=== PATIENT | female | born 1985 | race Hispanic/Latino ===

== ENCOUNTER 2018-08-21 16:47 | Emergency (ER) | payer OTHER, SELFPAY ==
[2018-08-21 16:54] VITALS: BP 113/64; PULSE 78; RESP 18; TEMP 37.4; O2SAT 98
--- NOTE | 2018-08-21 17:14 | DI.RAD.S_ITS ---
PROCEDURE: XR CHEST 1V INDICATIONS: chest pain TECHNIQUE: One view of the chest was acquired. COMPARISON: None. FINDINGS: Surgical changes and devices: None. Lungs and pleura: No pleural effusions or pneumothorax. Lungs are clear. Mediastinum: Mediastinal contours appear normal. Heart size is normal. Bones and chest wall: No suspicious bony lesions. Overlying soft tissues appear unremarkable. IMPRESSION: No acute cardiopulmonary radiology. Dictated by: Michael Le M.D. on 08/21/2018 at 17:32 Approved by: Michael Le M.D. on 08/21/2018 at 17:32
--- NOTE | 2018-08-21 17:20 | ED_ITS ---
HPI - Chest Pain General Chief Complaint: Chest Pain Stated Complaint: chest pains Time Seen by Provider: 08/21/18 17:08 Source: patient Mode of arrival: ambulatory Limitations: no limitations History of Present Illness HPI narrative: Patient is a 32-year-old female who presents with shortness of breath and chest discomfort. She says she has been extremely fatigued for the last 3 days. No fever or chills. She has no productive cough. She says that when she walks she feels like her chest gets tight. She does have history of asthma a child she says this feels similar. She denies any wheezing. MD complaint: chest pain Onset: during exertion Pain location: right chest Related Data Previous Rx's Medication Instructions Recorded progesterone micronized 100 mg PO QDAY #30 cap 08/04/16 Allergies Allergy/AdvReac Type Severity Reaction Status Date / Time No Known Drug Allergies Allergy Verified 08/21/18 16:53 Review of Systems Review of Systems Constitutional Denies body ache(s), Denies chills, Reports fatigue, Denies fever(s) and Denies weakness Cardiovascular Reports as per HPI, Reports chest pain, Denies dyspnea and Reports dyspnea on exertion Respiratory Denies cough, Denies dyspnea, Reports dyspnea on exertion and Denies wheezing Gastrointestinal Gastrointestinal: Denies abdominal pain, Denies change in bowel habits, Denies diarrhea, Denies nausea and Denies vomiting Musculoskeletal Denies back pain, Denies muscle weakness, Denies numbness and Denies tingling Integumentary/Breasts Denies pruritus, Denies erythema, Denies rash and Denies wounds Neurologic Denies numbness, Denies tingling and Denies weakness Endocrine Reports fatigue Allergic/Immunologic Denies wheezing [facility] Medical History Asthma (Resolved) Surgical History History of third molar tooth extraction Exam Initial Vital Signs Initial Vital Signs: Vital Signs Temperature 99.3 F 08/21/18 16:54 Pulse Rate 78 08/21/18 16:54 Respiratory Rate 18 08/21/18 16:54 Blood Pressure 113/64 08/21/18 16:54 Pulse Oximetry 98 08/21/18 16:54 GENERAL: Well-appearing, well-nourished and in no acute distress. HEENT: Head atraumatic,EOMI, pupils reactive, CARDIOVASCULAR: Regular rate and rhythm without murmurs, rubs or gallops. RESPIRATORY: Breath sounds equal bilaterally, no wheezes rales or rhonchi. ABDOMEN: Soft, nontender. Normoactive bowel sounds all 4 quadrants. No guarding or rebound. EXTREMITIES: Normal range of motion, no clubbing or edema. Neurovascularly intact NEUROLOGICAL: Alert and oriented x4.Normal gait and speech. Cranial nerves II through XII grossly intact. SKIN: Warm, dry, no laceration, no petechiae, no rashes or lesions. Course Orders Ordered: Discontinued Medications Albuterol (Ventolin) 2.5 mg INH NOW ONE Stop: 08/21/18 17:14 Last Admin: 08/21/18 17:33 Dose: 2.5 mg Albuterol (Ventolin Hfa Prepack) 1 box MISC SEEINSTR ONE Stop: 08/21/18 18:03 Last Admin: 08/21/18 18:09 Dose: 1 box Sodium Chloride (Normal Saline 0.9%) 1,000 mls @ 1,000 mls/hr IV CONT MATT Last Admin: 08/21/18 17:32 Dose: 1,000 mls/hr Vital Signs - 8 hr 08/21/18 16:54 Temperature 99.3 F Pulse Rate 78 Respiratory Rate 18 Blood Pressure [Left Arm] 113/64 Pulse Oximetry 98 MDM - Chest Pain Lab Data Attestation: I reviewed the patient's lab results. Result diagrams: 08/21/18 16:55 08/21/18 16:55 Lab Results 08/21/18 08/21/18 Range/Units 16:55 16:55 WBC 7.1 (4.5-11.0) X10^3/uL RBC 5.01 (4.0-5.2) X10^6/uL Hgb 12.7 (12.0-16.0) g/dL Hct 39.3 (36-46) % MCV 78.4 L (80-100) fL MCH 25.4 L (26-34) PG MCHC 32.4 (30-36) % RDW 14.4 (11.6-14.8) % Plt Count 262 (150-400) X10^3/uL Neut % (Auto) 63.3 (50-75) % Lymph % (Auto) 23.5 L (25-40) % Atlantic % (Auto) 7.3 (3-14) % Eos % (Auto) 5.5 H (2-4) % Baso % (Auto) 0.4 (0-2) % Neut # (Auto) 4500 (4343-8257) /uL Sodium 144 (137-145) mmol/L Potassium 3.5 (3.4-5.1) mmol/L Chloride 106 (98-107) mmol/L Carbon Dioxide 25 (22-32) mmol/L BUN 16 (7-17) mg/dL Creatinine 0.80 (0.52-1.04) mg/dL Estimated GFR > 60.0 (>60) mL/min BUN/Creatinine Ratio 20.0 (6-22) Glucose 105 H (70-100) mg/dL Calcium 9.1 (8.4-10.2) mg/dL Total Bilirubin 0.3 (0.2-1.3) mg/dL AST 26 (14-36) IU/L ALT 22 (9-52) IU/L Alkaline Phosphatase 53 (38-126) U/L Total Creatine Kinase 74 (30-135) U/L CK-MB (CK-2) TNP CK-MB (CK-2) Rel Index TNP Troponin I < 0.012 (0.01-0.034) ng/mL Total Protein 7.9 (6.3-8.2) g/dL Albumin 4.4 (3.5-5.0) g/dL Globulin 3.5 (1.7-4.1) g/dL Albumin/Globulin Ratio 1.3 (1.0-2.8) Lipase 127 (23-300) U/L Imaging Data Chest x-ray: Attestation: I personally reviewed and interpreted this imaging study as follows: Radiologist's impression: PROCEDURE: XR CHEST 1V INDICATIONS: chest pain TECHNIQUE: One view of the chest was acquired. COMPARISON: None. FINDINGS: Surgical changes and devices: None. Lungs and pleura: No pleural effusions or pneumothorax. Lungs are clear. Mediastinum: Mediastinal contours appear normal. Heart size is normal. Bones and chest wall: No suspicious bony lesions. Overlying soft tissues appear unremarkable. IMPRESSION: No acute cardiopulmonary radiology. Dictated by: Michael Le M.D. on 08/21/2018 at 17:32 ECG Data Attestation: I personally reviewed and interpreted this ECG as follows: Prior ECG tracings: not available for review Interpretation: Normal sinus rhythm rate [address] changes artifact noted nonspecific T-wave inversions MDM Narrative Medical decision making narrative: Patient is overall feeling better after albuterol. A blood work is an chest x-ray are within normal limits. She is given albuterol inhaler and spacer teaching by respiratory. Discharge Plan Departure Patient Disposition: Home Clinical Impression: Atypical chest pain, Bronchitis Discharge Date/Time: 08/21/18 18:19 Interventions: ED Discharge Assessment Last Done: 08/21/18 18:05 Instructions: DI for Acute Bronchitis Activity Restrictions/Additional Instructions: *You have been diagnosed with bronchitis, atypical chest pain *What to do: At this time no need for antibiotics this is likely viral. Rest *Continue to take medications as directed Albuterol inhaler 1-2 puffs every 4 hr if needed for chest tightness shortness of breath *Follow up with your primary care provider in 2-3 days *Return to ER if you should have increasing shortness of breath, difficulty breathing, chest any new, worsening or concerning symptoms Prescriptions: No Action progesterone micronized 100 MG capsule 100 mg PO QDAY Qty: 30 RF: 2 Referrals: Aura Lopez PA-C [Primary Care Provider] -
[2018-08-21 17:26] LABS: Add Manual Diff / Slide Review NO; Basophils Percent Auto 0.4 % (0-2); Eosinophils Percent Auto 5.5 % (2-4); Hematocrit 39.3 % (36-46); Hemoglobin 12.7 g/dL (12.0-16.0); Lymphocytes Percent Auto 23.5 % (25-40); Mean Corpuscular HGB Conc 32.4 % (30-36); Mean Corpuscular Hemoglobin 25.4 PG (26-34); Mean Corpuscular Volume 78.4 fL (80-100); Monocytes Percent Auto 7.3 % (3-14); Neutrophils Absolute Auto 4500 /uL (1500-7000); Neutrophils Percent Auto 63.3 % (50-75); Platelet Count 262 X10^3/uL (150-400); Red Blood Cell Count 5.01 X10^6/uL (4.0-5.2); Red Cell Distribution Width 14.4 % (11.6-14.8); White Blood Cell Count 7.1 X10^3/uL (4.5-11.0)
[2018-08-21 17:28] LABS: Alanine Aminotransferase 22 IU/L (9-52); Albumin 4.4 g/dL (3.5-5.0); Albumin Globulin Ratio 1.3 (1.0-2.8); Alkaline Phosphatase 53 U/L (38-126); Aspartate Aminotransferase 26 IU/L (14-36); Bilirubin Total 0.3 mg/dL (0.2-1.3); Blood Urea Nitrogen 16 mg/dL (7-17); Calcium 9.1 mg/dL (8.4-10.2); Carbon Dioxide 25 mmol/L (22-32); Chloride 106 mmol/L (98-107); Creatine Kinase 74 U/L (30-135); Estimated Glomerular Filt Rate > 60.0 mL/min (>60); Globulin 3.5 g/dL (1.7-4.1); Glucose 105 mg/dL (70-100); HEMOLYSIS < 15 (0-50); Lipase 127 U/L (23-300); Potassium 3.5 mmol/L (3.4-5.1); Sodium 144 mmol/L (137-145); Total Protein 7.9 g/dL (6.3-8.2)
[2018-08-21] MEDS: SODIUM CHLORIDE 0.9% 1,000 ML 1000 ML IV (17:32)
[2018-08-21] MEDS: ALBUTEROL 2.5 MG/3 ML NEB (ADULT) INH (17:33)
[2018-08-21 17:48] LABS: Troponin I < 0.012 ng/mL (0.01-0.034)
[2018-08-21 18:02] VITALS: BP 108/59; PULSE 90; RESP 20; O2SAT 100
[2018-08-21] MEDS: ALBUTEROL HFA PREPACK 1 BOX MISC (18:09)
[2018-08-21 18:16] VITALS: O2SAT 98
--- NOTE | 2018-10-04 12:24 | PC.NURSE ---
Per Tosha Bennett RN, patient received 1000ml of Normal Saline IV on 08/21/2018 that was stopped at 1842.
== END 2018-08-21 18:19 | disposition home or self-care (01) ==
PROVIDERS: Emergency Provider Emergency Medicine; PCP Physician Assistant Medical
DX: J40 Bronchitis, not specified as acute or chronic (principal); R07.89 Other chest pain
CPT/HCPCS: 36591; 71045; 80053; 82550; 83690; 84484; 85025; 93005; 96360; 99282; 99285; J7613

== ENCOUNTER → 2019-01-10 14:40 | Outpatient (CLI) | payer OTHER, SELFPAY ==
--- NOTE | 2019-01-10 | DI.US.S_ITS ---
LIMITED ULTRASOUND OF LEFT BREAST: 01/10/2019 CLINICAL: Abn mammo. Comparison is made to exam dated: 01/10/2019 [facility]. Color flow and real-time ultrasound of the left breast upper aspect were performed on the areas of interest. There is 0.9 cm x 0.5 cm x 1.4 cm oval mass with a circumscribed margin in the left breast at 2 o'clock anterior depth. This oval mass is hypoechoic. This correlates with mammography findings. Color flow imaging demonstrates that there is no vascularity present. There also is an irregular area of fibroglandular tissue with an indistinct margin in the left breast at 11 o'clock anterior depth. This irregular area of fibroglandular tissue is hypoechoic. This correlates with mammography findings. Color flow imaging demonstrates that there is no vascularity present. Additionally, there is a benign 0.6 cm x 0.4 cm x 0.6 cm oval cyst with a smooth internal wall in the left breast at 2 o'clock anterior depth. This oval cyst is anechoic with a well-defined boundary. Color flow imaging demonstrates that there is no vascularity present. IMPRESSION: PROBABLY BENIGN The 0.9 cm x 0.5 cm x 1.4 cm oval mass in the left breast at 2 o'clock anterior depth is probably benign. A follow-up ultrasound in 6 months is recommended. The irregular area of fibroglandular tissue in the left breast at 11 o'clock anterior depth is probably benign. A follow-up ultrasound in 6 months is recommended. The 0.6 cm x 0.4 cm x 0.6 cm oval cyst in the left breast at 2 o'clock anterior depth is benign. A follow-up ultrasound in 6 months is recommended to demonstrate stability. This exam was interpreted at Station ID: [id number]. Electronically Signed By: Joel rubio/saurabh:01/10/2019 18:10:37 letter sent: Followup Recommended Ultrasound BI-RADS: 3 Probably benign
--- NOTE | 2019-01-10 14:42 | DI.MG.S_ITS ---
BILATERAL DIGITAL DIAGNOSTIC MAMMOGRAM 3D/2D: 01/10/2019 CLINICAL: Baseline exam. Right breast pain. No prior exams were available for comparison. The tissue of both breasts is extremely dense, which lowers the sensitivity of mammography. There is an oval equal density asymmetry with an obscured and indistinct margin in the left breast at 12 o'clock anterior depth. There also is an oval low density mass with an obscured and circumscribed margin in the left breast at 3 o'clock middle depth. No other significant masses, calcifications, or other findings are seen in either breast. IMPRESSION: INCOMPLETE: NEEDS ADDITIONAL IMAGING EVALUATION The oval equal density asymmetry in the left breast at 12 o'clock anterior depth is indeterminate. An ultrasound is recommended. The oval low density mass in the left breast at 3 o'clock middle depth is indeterminate. An ultrasound is recommended. There is no abnormality seen in the right breast to correspond with the palpable abnormality at 1 o'clock, however, ultrasound is recommended. This exam was interpreted at Station ID: [id number]. NOTE: For mammograms, a report in lay terms will be sent to the patient. Approximately 15% of breast malignancies will not be visualized mammographically. In the management of a palpable breast mass, a negative mammogram must not discourage biopsy of a clinically suspicious lesion. Electronically Signed By: Joel rubio/saurabh:01/10/2019 18:07:17 letter sent: Need Ultrasound ACR BI-RADS Category 0: Incomplete [id number]
--- NOTE | 2019-01-10 14:42 | DI.US.S_ITS ---
LIMITED ULTRASOUND OF RIGHT BREAST: 01/10/2019 CLINICAL: Focal right breast pain. Comparison is made to exam dated: 01/10/2019 [facility]. Real-time ultrasound of the right breast 1 o'clock region was performed on the area of interest. IMPRESSION: NEGATIVE There is no sonographic evidence of malignancy. There is no abnormality seen in the right breast to correspond with the pain at 1 o'clock, however, clinical followup is recommended. This exam was interpreted at Station ID: [id number]. Electronically Signed By: Joel rubio/saurabh:01/10/2019 18:06:50 letter sent: Clinical Evaluation Ultrasound BI-RADS: 1 Negative
== END ==
PROVIDERS: PCP Nurse Practitioner; Visit Provider Nurse Practitioner
DX: R92.8 Other abnormal and inconclusive findings on diagnostic imaging of breast (principal); N64.4 Mastodynia; N63.21 Unspecified lump in the left breast, upper outer quadrant; N60.02 Solitary cyst of left breast; N64.89 Other specified disorders of breast
CPT/HCPCS: 76642; 77066; G0279

== ENCOUNTER → 2019-01-27 15:08 | Outpatient (CLI) | payer OTHER, SELFPAY ==
[2019-01-27 16:39] LABS: TSH w/ Reflex to FT4 2.85 uIU/mL (0.47-4.68)
== END ==
PROVIDERS: PCP Nurse Practitioner; Visit Provider Nurse Practitioner
DX: R63.5 Abnormal weight gain (principal); Z00.00 Encounter for general adult medical examination without abnormal findings
CPT/HCPCS: 36415; 84443

== ENCOUNTER → 2019-05-22 07:04 | Outpatient (CLI) | payer OTHER, SELFPAY ==
--- NOTE | 2019-05-22 07:09 | DI.US.S_ITS ---
ULTRASOUND OF RIGHT BREAST: 05/22/2019 CLINICAL: Painful lumpy right breast. Comparison is made [facility] and real-time ultrasound of the right breast were performed. Watson scale images of the real-time examination were reviewed. No significant abnormalities were seen sonographically in the right breast. Specifically, no finding to correspond to the patient's palpable abnormality. IMPRESSION: NEGATIVE There is no sonographic correlate to the patient's palpable abnormality and no evidence of malignancy. Clinical follow up with primary care doctor for other causes of patient's symptoms is recommended. Beginning annual mammogram screening at age 40 is recommended. Findings and recommendations were conveyed to the patient at time of exam. This exam was interpreted at Station ID: [id number]. Electronically Signed By: Edwige medina/:05/22/2019 08:37:22 letter sent: Normal Exam Ultrasound BI-RADS: 1 Negative
== END ==
PROVIDERS: PCP Nurse Practitioner; Visit Provider Nurse Practitioner Family
DX: N64.4 Mastodynia (principal); N63.10 Unspecified lump in the right breast, unspecified quadrant
CPT/HCPCS: 76642

== ENCOUNTER → 2019-07-27 15:34 | Outpatient (CLI) | payer OTHER, SELFPAY ==
[2019-07-27 16:37] LABS: Appearance Urine UA CLEAR; Bilirubin Urine UA NEGATIVE (NEGATIVE); Color Urine UA YELLOW; Glucose Urine UA NEGATIVE (Negative); Ketones Urine UA NEGATIVE (NEGATIVE); Leukocyte Esterase Urine UA NEGATIVE (NEGATIVE); Nitrite Urine UA NEGATIVE (Negative); Occult Blood Urine UA NEGATIVE (Negative); Protein Urine UA NEGATIVE (Negative); Urobilinogen Urine UA 0.2 E.U./dL (0.2)
[2019-07-27 16:41] LABS: pH Urine UA 7.5 (4.5-8.0)
[2019-07-27 16:56] LABS: Add Manual Diff / Slide Review NO; Basophils Absolute Auto 0 /uL (0-100); Basophils Percent Auto 0.4 % (0-2); Eosinophils Absolute Auto 300 /uL (0-450); Hematocrit 34.9 % (36-46); Hemoglobin 11.6 g/dL (12.0-16.0); Lymphocytes Absolute Auto 1600 /uL (1100-4500); Lymphocytes Percent Auto 18.8 % (25-40); Mean Corpuscular HGB Conc 33.2 % (30-36); Mean Corpuscular Hemoglobin 25.6 PG (26-34); Mean Corpuscular Volume 77.1 fL (80-100); Monocytes Absolute Auto 700 /uL (0-900); Monocytes Percent Auto 8.2 % (3-14); Neutrophils Absolute Auto 5800 /uL (1500-7000); Neutrophils Percent Auto 68.6 % (50-75); Platelet Count 285 X10^3/uL (150-400); Red Blood Cell Count 4.52 X10^6/uL (4.0-5.2); Red Cell Distribution Width 14.2 % (11.6-14.8); White Blood Cell Count 8.5 X10^3/uL (4.5-11.0)
[2019-07-27 17:43] LABS: Hepatitis B Surface Antigen NEGATIVE s/c (NEGATIVE); Rubella Antibody IgG 11.3 IU/mL (>15)
[2019-07-27 17:58] LABS: HIV 1 & 2 Ab/Ag 4th Gen Combo NEGATIVE (NEGATIVE); Hep C Virus Ab w/Reflex Quant NEGATIVE s/c (NEGATIVE)
[2019-07-27 20:33] LABS: Urine N gonorrhoeae NOT DETECTED
[2019-07-27 20:36] LABS: Urine Chlamydia NOT DETECTED
[2019-07-29 21:04] LABS: RPR Screen Nonreactive (Nonreactive)
== END ==
PROVIDERS: PCP Nurse Practitioner; Visit Provider Obstetrics & Gynecology
DX: Z11.3 Encounter for screening for infections with a predominantly sexual mode of transmission (principal); Z34.81 Encounter for supervision of other normal pregnancy, first trimester
CPT/HCPCS: 36415; 80055; 81003; 86787; 86803; 86850; 86870; 86886; 86900; 86901; 87086; 87389; 87491; 87591

== ENCOUNTER → 2019-10-04 09:17 | Outpatient (CLI) | payer OTHER, SELFPAY ==
--- NOTE | 2019-10-20 16:08 | PM.CARDMON.1 ---
Social Media Assistant Report Referral & Results Date Patient Seen: 10/04/19 Requesting provider: Milagros Mcmillan Indication: Palpitations Duration of monitoring (days): 7 Diary information: There were 12 patient triggered events and no patient diary entries Patient triggered events were associated sinus rhythm and ventricular ectopic beats Data: Minimum heart rate identified is 59 beats per minute at 00:33 on 10/05/2019 Maximum heart rate was 160 beats per minute at 15:08 on 10/09/2019 Less than 1% of identified beats were either ventricular supraventricular ectopic in origin Impression: Patient's sense of palpitations potentially associated with PVCs. No serious dysrhythmias identified on this study. Clinical correlation suggested
== END ==
PROVIDERS: PCP Nurse Practitioner; Visit Provider Nurse Practitioner
DX: R00.2 Palpitations (principal)
CPT/HCPCS: 0296T; 0298T

== ENCOUNTER → 2019-12-11 10:28 | Outpatient (CLI) | payer OTHER, SELFPAY ==
[2019-12-11 12:51] LABS: Hematocrit 28.9 % (36-46); Hemoglobin 9.7 g/dL (12.0-16.0)
[2019-12-11 13:00] LABS: GTT (PREG) 1 Hour PP 50gm Dose 116 mg/dL (76-139)
== END ==
PROVIDERS: PCP Nurse Practitioner; Referring Provider Obstetrics & Gynecology; Visit Provider Obstetrics & Gynecology
DX: Z34.82 Encounter for supervision of other normal pregnancy, second trimester (principal); Z3A.23 23 weeks gestation of pregnancy
CPT/HCPCS: 36415; 82950; 85014; 85018

== ENCOUNTER → 2019-12-25 13:39 | Outpatient (CLI) | payer OTHER, SELFPAY | PROVIDERS: PCP Nurse Practitioner; Visit Provider Obstetrics & Gynecology | DX: Z34.83 Encounter for supervision of other normal pregnancy, third trimester (principal); N94.9 Unspecified condition associated with female genital organs and menstrual cycle; Z3A.29 29 weeks gestation of pregnancy | CPT/HCPCS: 87480; 87510; 87660 ==

== ENCOUNTER 2020-02-01 12:30 | Emergency (ER) | payer OTHER, SELFPAY ==
[2020-02-01 12:33] VITALS: BP 110/63; PULSE 113; RESP 18; TEMP 36.7; O2SAT 98; BMI 28.4
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
--- NOTE | 2020-02-01 13:33 | DI.RAD.S_ITS ---
PROCEDURE: XR FOREARM RT 2V INDICATIONS: fall, arm pain TECHNIQUE: 2 views of the forearm were acquired. COMPARISON: None. FINDINGS: Bones: No fractures or dislocations. No suspicious bony lesions. Soft tissues: No suspicious soft tissue calcifications or masses. IMPRESSION: Normal for age, source of current pain after trauma symptoms is not seen. Dictated by: Brandon Ryan M.D. on 02/01/2020 at 14:15 Approved by: Brandon Ryan M.D. on 02/01/2020 at 14:16
--- NOTE | 2020-02-01 13:34 | DI.RAD.S_ITS ---
PROCEDURE: XR ELBOW RT MIN 3V INDICATIONS: elbow pain, fall TECHNIQUE: 3 views of the elbow were acquired. COMPARISON: None. FINDINGS: Bones: No fractures or dislocations. No suspicious bony lesions. Soft tissues: No elbow joint effusion. No suspicious soft tissue calcifications. IMPRESSION: No trauma found. Dictated by: Brandon Ryan M.D. on 02/01/2020 at 14:16 Approved by: Brandon Ryan M.D. on 02/01/2020 at 14:17
[2020-02-01] MEDS: ACETAMINOPHEN 325 MG TABLET 650 MG PO (13:48)
[2020-02-01 15:05] VITALS: BP 107/57; PULSE 86; RESP 20; O2SAT 96
== END 2020-02-01 15:07 | disposition home or self-care (01) ==
PROVIDERS: Emergency Provider Student in an Organized Health Care Education/Training Program; PCP Nurse Practitioner
DX: S53.401A Unspecified sprain of right elbow, initial encounter (principal); S56.911A Strain of unspecified muscles, fascia and tendons at forearm level, right arm, initial encounter; W10.9XXA Fall (on) (from) unspecified stairs and steps, initial encounter; Z3A.36 36 weeks gestation of pregnancy
CPT/HCPCS: 73080; 73090; 99283; 99284

== ENCOUNTER 2020-02-01 15:38 | Outpatient (CLI) | payer OTHER, SELFPAY | END 2020-02-01 16:40 | disposition home or self-care (01) | LOC: LABOR 16:31 → OB 02-06 12:34 | PROVIDERS: PCP Nurse Practitioner; Referring Provider Specialist; Visit Provider Specialist | DX: O47.03 False labor before 37 completed weeks of gestation, third trimester (principal); O26.23 Pregnancy care for patient with recurrent pregnancy loss, third trimester; Z3A.34 34 weeks gestation of pregnancy; W19.XXXA Unspecified fall, initial encounter | CPT/HCPCS: 59025; G0378; G0379 ==

== ENCOUNTER → 2020-02-07 11:55 | Outpatient (CLI) | payer OTHER, SELFPAY ==
[2020-02-08 16:14] LABS: Candida species Negative (Negative); Gardnerella vaginalis Negative (Negative); Trichomoas vaginalis Negative (Negative)
[2020-02-08 16:30] LABS: Strep Grp B PCR NEG for Grp B Strep
== END ==
PROVIDERS: PCP Nurse Practitioner; Visit Provider Obstetrics & Gynecology
DX: Z34.83 Encounter for supervision of other normal pregnancy, third trimester (principal); Z3A.35 35 weeks gestation of pregnancy
CPT/HCPCS: 87480; 87510; 87653; 87660

== ENCOUNTER 2020-02-23 17:30 | Outpatient (CLI) | payer OTHER, SELFPAY ==
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
== END 2020-02-23 18:20 | disposition home or self-care (01) ==
LOC: OB 02-26 11:34
PROVIDERS: PCP Nurse Practitioner; Referring Provider Obstetrics & Gynecology; Visit Provider Obstetrics & Gynecology
DX: O26.23 Pregnancy care for patient with recurrent pregnancy loss, third trimester (principal); Z3A.38 38 weeks gestation of pregnancy
CPT/HCPCS: 59025; G0378; G0379

== ENCOUNTER 2020-02-29 10:26 | Inpatient (IN) | payer OTHER, SELFPAY ==
[2020-02-29 11:16] LABS: Add Manual Diff / Slide Review NO; Basophils Absolute Auto 0 /uL (0-100); Basophils Percent Auto 0.5 % (0-2); Eosinophils Absolute Auto 300 /uL (0-450); Eosinophils Percent Auto 3.5 % (2-4); Hematocrit 28.7 % (36-46); Hemoglobin 9.3 g/dL (12.0-16.0); Lymphocytes Absolute Auto 1100 /uL (1100-4500); Lymphocytes Percent Auto 13.4 % (25-40); Mean Corpuscular HGB Conc 32.2 % (30-36); Mean Corpuscular Hemoglobin 23.5 PG (26-34); Mean Corpuscular Volume 73.1 fL (80-100); Monocytes Absolute Auto 500 /uL (0-900); Monocytes Percent Auto 6.7 % (3-14); Neutrophils Absolute Auto 6100 /uL (1500-7000); Neutrophils Percent Auto 75.9 % (50-75); Platelet Count 269 X10^3/uL (150-400); Red Blood Cell Count 3.93 X10^6/uL (4.0-5.2); Red Cell Distribution Width 17.7 % (11.6-14.8)
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
[2020-02-29] MEDS: OXYTOCIN PREMIX 30 UNIT/500 ML PLAST..BAG IV (14:02)
[2020-02-29] MEDS: LACTATED RINGERS 1,000 ML 100 ML IV (14:02)
--- NOTE | 2020-02-29 20:57 | PM.OBPNLAB ---
Date/Time Date Patient Seen: 02/29/20 Time Patient Seen: 20:50 Pain Control Pain control: tolerating well and epidural Comments: Much more comfortable with epidural Pelvic Exam Dilation (cm): 6 Effacement (%): 85 station: 0 Contractions Monitor mode: External Pitocin rate (mU/min): 12 Contraction frequency (min): 2 Contraction pattern: Regular Contraction intensity: Strong/Firm Status status: Category ll Heart Rate Baseline: 130 Monitor Accelerations: Present Monitor Decelerations: Variable Monitor Variability: Moderate Assessment and Plan Assessment: active labor Plan: continuous present management Comments: Patient now in active labor and comfortable with epidural. FHT category II due to variables. Will try position changes and monitor closely. Variability remains moderate.
--- NOTE | 2020-02-29 22:35 | PM.OBPRVD ---
Labor & Delivery Delivery date: 02/29/20 Delivery augmentation: pitocin Delivery monitor: external FHT Route of delivery: L&D Laceration Description: Perineal - 2nd Degree (short first degree superior labial repaired for hemostasis) Delivery repair: vicryl Estimated blood loss (mL): 400 Anesthesia type: Epidural Narrative: VAGINAL DELIVERY NOTE Patient is a 34-year-old G4-now-P2 at 39 weeks gestation who gave on 02/29/2020 at 22:02. JESSICA: 03/07/20 STAGE I: Labor Patient presented after spontaneous rupture of membranes at home at approximately 8:50 a.m. with clear fluid and continue leaking. She was started Pitocin per and received an epidural with excellent pain control. Patient was complete at 10:34 p.m.. heart tones were category 1 and 2 to variables throughout stage 1 labor. STAGE II: Delivery Second stage of labor was 29 minutes. Patient delivered a vigorous female at 10:03 p.m.. was vertex and [place]. A tight nuchal cord x1 was reduced then remainder of delivered easily. Infant was immediately placed on mother's abdomen. Cord was clamped and cut after approximately 1 minute delay. Apgars were 9 and 9. No resuscitation of the required beyond the usual drying and stimulating. STAGE III: Placenta/Cord Placenta delivered at 10:08 p.m. after active management and appeared intact with a three-vessel cord. Pitocin bolus given after delivery of placenta. His second-degree perineal laceration was repaired with 4 0 Vicryl in the usual fashion with good hemostasis. A very small superior labial laceration was repaired for hemostasis. Fundus was firm well below umbilicus after delivery. EBL: 400 mL. Needle and sponge counts were correct. The vagina was inspected and no items were left in situ. Patient was doing well with Julisa, her and at bedside. [place] Baby 1: Infant gender: Female Presentation: vertex Placenta delivery description: Spontaneous cord vessel description: Nuchal Cord score (1 min): 9 score (5 min): 9
[2020-03-01] MEDS: IBUPROFEN 600 MG TABLET PO ×3 (02:14→14:55)
[2020-03-01] MEDS: DERMOPLAST SPRAY 20% 60 ML 1 SPRAY TOP (02:14)
[2020-03-01] MEDS: LANOLIN OINT 7 GM 1 APPLIC TOP (02:15)
[2020-03-01 06:30] LABS: Hematocrit 28.4 % (36-46); Hemoglobin 9.2 g/dL (12.0-16.0)
[2020-03-01] MEDS: PRENATAL VIT,CALC/IRON/FOLIC 1 TABLET 1 TAB PO (08:54)
[2020-03-01] MEDS: DOCUSATE 100 MG CAPSULE PO (08:54)
[2020-03-01] MEDS: FERROUS GLUCONATE 324 MG TABLET PO (08:55)
--- NOTE | 2020-03-01 13:38 | PM.OBDS.1 ---
Discharge Providers Provider Date of admission: 02/29/20 10:26 Discharge Date: 03/01/20 Primary care physician: KYLIE Almonte Consults: 03/01/20 05:00 Consult to [employer] Routine Comment: Discharge provider: Keyana Black DO Summary Hospital Course Date Patient Seen: 03/01/20 Time Patient Seen: 17:05 Procedures: Spontaneous vaginal delivery Hospital Course: Patient is a 34 G4-now-P2 after uncomplicated spontaneous vaginal delivery at 39 weeks gestation on 02/29/20. Patient presented to the center with spontaneous rupture of membranes at home. She received Pitocin for augmentation of labor. She went on to receive an epidural deliver healthy female . A second-degree perineal laceration was repaired in the usual fashion. A very small superior labial laceration was also repaired for hemostasis. course uncomplicated. Patient was ambulating, voiding and passing flatus. Vaginal bleeding was light to moderate. Pain well controlled with ibuprofen only. Breast-feeding was going well and there were no concerns in the . Patient was advised to call for fevers, severe pain or bleeding through more than a pad an hour. She will follow up in clinic in 6 weeks. Peripartum Data Infant Delivery Method: Natural Vaginal Laceration description: Perineal - 2nd Degree complications: none 1: Gender: Female Disposition of : home Discharge Diagnosis (1) 39 weeks gestation of : Status: Acute (2) Spontaneous vaginal delivery: Status: Acute Status at Discharge Cognitive/behavioral status at discharge: at baseline, oriented Functional status at discharge: independent ambulation Overall status at discharge: patient is progressing back to baseline Time Spent with Patient Time attestation: Total time spent providing and/or coordinating discharge services: Time spent: Less than 30 minutes Objective Labs Result Diagrams: 03/01/20 06:20 Labs: Laboratory Results - last 24 hr 03/01/20 06:20 Hgb 9.2 L Hct 28.4 L Exam Vital Signs (past 8 hours): Temperature 99.8? blood pressure 99/58 heart rate 87 respirations 17 Narrative Exam Narrative: General: Awake and alert, no acute distress. HEENT: NCAT, EOMI, moist oral mucosa CV: Regular rate and rhythm, no murmurs, rubs or gallops Lungs: CTAB, no wheezes, rales, or rhonchi Abdomen: Soft, nontender; bowel tones active; uterus firm 1 cm below umbilicus Extremities: Warm, no edema, 2+ pedal pulses bilaterally Discharge Plan Discharge Plan Patient Disposition: Home Discharge orders & Medications Prescriptions: New docusate sodium [DOK] 100 mg Capsule 100 mg PO DAILY Qty: 30 RF: 0 ibuprofen 600 mg Tablet 600 mg PO Q6HR PRN (Reason: Pain, Mild (1-3)) Qty: 30 RF: 0 ferrous gluconate 324 mg (38 mg iron) Tablet 324 mg PO BID Qty: 60 RF: 0 Continued albuterol sulfate 90 mcg/actuation HFA aerosol inhaler 2 puff INHALATION ONCE PRN (Reason: asthma) Qty: 6.7 RF: 2 multivitamin tablet 1 tab PO DAILY RF: 0 Discontinued (DME) [employer] breast Pump and Supplies See Rx Instructions .ROUTE .MEDSUPPLY Qty: 1 RF: 0 metronidazole 500 mg tablet 500 mg PO BID Qty: 14 RF: 0 Follow up/Referrals: Milagros Mcmillan ARNP [Primary Care Provider] - (Pt will call for appt) Zee Mendiola MD [Physician] - 6 Weeks (Pt has 6th wk post follow up appointment with Dr. Mendiola on 04/12/2020 @ 1400) Diet/Activity/Treatments Diet: Diet as Tolerated Activity: Pelvic rest for 6 weeks or until after an appt. with Dr. Mendiola Skin/Wound/Dressing Care Report to your healthcare provider any signs of infection, such as:: chills, fever, increased pain, unusual drainage and unusual redness Visit Report/Discharge Packet Stand Alone Forms: Discharge: Care Visit Report Forms: Patient Portal/API, Stroke Signs & Symptoms Discharge Data Primary Care Provider: Milagros Mcmillan
[2020-03-01 13:47] VITALS: BP 99/58; PULSE 87; RESP 17; TEMP 37.7
[2020-03-01] MEDS: ACETAMINOPHEN 325 MG TABLET 650 MG PO (14:31)
[2020-03-01 14:55] VITALS: TEMP 37.7
[2020-03-01 16:30] VITALS: BP 114/71; RESP 16; TEMP 36.9
[2020-03-01 18:30] VITALS: BP 114/71; PULSE 87; RESP 16; TEMP 36.9
[2020-03-01] MEDS: MEASLES,MUMPS,RUBELLA VACC/PF 0.5 ML VIAL SUBCUT (18:34)
== END 2020-03-01 18:30 | disposition home or self-care (01) | DRG 807 ==
PROVIDERS: Admitting Provider Family Medicine; PCP Nurse Practitioner; Referring Provider Family Medicine; Visit Provider Family Medicine
DX: O99.02 Anemia complicating childbirth (principal); Z37.0 Single live birth; D51.3 Other dietary vitamin B12 deficiency anemia; O70.1 Second degree perineal laceration during delivery; Z3A.39 39 weeks gestation of pregnancy
CPT/HCPCS: 01967; 36415; 59050; 59400; 59409; 85014; 85018; 85025; 86850; 86870; 86900; 86901; G0379; J2590

== ENCOUNTER → 2021-06-13 15:53 | Outpatient (CLI) | payer OTHER, SELFPAY ==
--- NOTE | 2021-06-13 15:54 | DI.US.S_ITS ---
PROCEDURE: US OB <= 14 WEEKS FETUS INDICATIONS: INITIAL VIABILITY DATING OUTSIDE/PRIOR DATING DATA: Last menstrual period (LMP): April 12, 2021 LMP-based estimated date of delivery (JESSICA): January 17, 2022 First dating scan (date and location): June 13, 2021 Estimated date of delivery (JESSICA) from first dating scan: January 18, 2022 TECHNIQUE: Real-time scanning was performed of the fetus and maternal pelvic organs, with image documentation. Endovaginal scanning was also performed to better visualize the fetus and maternal ovaries. COMPARISON: None. FINDINGS: Embryo: Single living intrauterine identified. pole and yolk sac are identified. [place]-rump length measures 2.1 centimeters corresponding to ultrasound estimated gestational age of 8 weeks 5 days. Heart rate: 173 beats per minute Measurement variability in dating: +/- 4 weeks by LMP, +/- 7 days by mean sac diameter (use before 6 weeks gestation if crown-rump length not able to be measured), +/- 5 days by crown-rump length (up to 8 weeks 6 days gestation), +/- 7 days by crown-rump length (up to 13 weeks 6 days gestation). Maternal organs: Ovaries not well seen and cannot be evaluated. IMPRESSION: 1. Single living intrauterine with ultrasound estimated gestational age of 8 weeks 5 days corresponding to ultrasound JESSICA of January 18, 2022. 2. Maternal ovaries not well visualized and cannot be evaluated. Dictated by: Staci Peña MD, PhD on 06/13/2021 at 17:05 Approved by: Staci Peña MD, PhD on 06/13/2021 at 17:07
== END ==
PROVIDERS: PCP Nurse Practitioner; Referring Provider Obstetrics & Gynecology; Visit Provider Obstetrics & Gynecology
DX: Z34.81 Encounter for supervision of other normal pregnancy, first trimester (principal); Z3A.08 8 weeks gestation of pregnancy
CPT/HCPCS: 76801; 76817

== ENCOUNTER → 2021-06-13 16:24 | Outpatient (CLI) | payer OTHER, SELFPAY ==
[2021-06-13 16:46] LABS: Add Manual Diff / Slide Review NO; Basophils Absolute Auto 0 /uL (0-100); Basophils Percent Auto 0.5 % (0-2); Eosinophils Absolute Auto 400 /uL (0-450); Eosinophils Percent Auto 4.7 % (2-4); Hematocrit 37.4 % (36-46); Hemoglobin 12.1 g/dL (12.0-16.0); Lymphocytes Absolute Auto 1400 /uL (1100-4500); Lymphocytes Percent Auto 17.7 % (25-40); Mean Corpuscular HGB Conc 32.4 % (30-36); Mean Corpuscular Hemoglobin 26.3 PG (26-34); Mean Corpuscular Volume 81.1 fL (80-100); Monocytes Absolute Auto 600 /uL (0-900); Monocytes Percent Auto 7.5 % (3-14); Neutrophils Absolute Auto 5600 /uL (1500-7000); Neutrophils Percent Auto 69.6 % (50-75); Platelet Count 289 X10^3/uL (150-400); Red Blood Cell Count 4.62 X10^6/uL (4.0-5.2); Red Cell Distribution Width 14.3 % (11.6-14.8)
[2021-06-13 17:26] LABS: Appearance Urine UA CLEAR; Bilirubin Urine UA NEGATIVE (NEGATIVE); Color Urine UA YELLOW; Glucose Urine UA NEGATIVE (Negative); Ketones Urine UA NEGATIVE (NEGATIVE); Leukocyte Esterase Urine UA NEGATIVE (NEGATIVE); Nitrite Urine UA NEGATIVE (Negative); Occult Blood Urine UA TRACE-INTACT (Negative); Protein Urine UA NEGATIVE (Negative); Specific Gravity Urine UA <=1.005 (1.000-1.035); Urobilinogen Urine UA 0.2 E.U./dL (0.2)
[2021-06-14 09:49] LABS: RPR Screen Non Reactive (Non Reactive)
[2021-06-14 12:36] LABS: Varicella IgG Antibody 820 index (Immune >165)
[2021-06-14 14:56] LABS: Hepatitis B Surface Antigen NEGATIVE s/c (NEGATIVE); Rubella Antibody IgG 21.9 IU/mL (>15)
[2021-06-14 15:09] LABS: HIV 1 & 2 Ab/Ag 4th Gen Combo NEGATIVE (NEGATIVE); Hep C Virus Ab w/Reflex Quant NEGATIVE s/c (NEGATIVE)
== END ==
PROVIDERS: PCP Nurse Practitioner; Referring Provider Obstetrics & Gynecology; Visit Provider Obstetrics & Gynecology
DX: Z34.81 Encounter for supervision of other normal pregnancy, first trimester (principal); Z3A.08 8 weeks gestation of pregnancy
CPT/HCPCS: 36415; 76801; 76817; 80055; 81003; 86787; 86803; 86850; 86870; 86886; 86900; 86901; 87086; 87389

== ENCOUNTER → 2021-06-30 13:12 | Outpatient (ROUT) | payer OTHER, SELFPAY ==
[2021-06-30 14:52] LABS: Urine N gonorrhoeae NOT DETECTED
[2021-06-30 14:54] LABS: Urine Chlamydia NOT DETECTED
== END ==
PROVIDERS: PCP Nurse Practitioner; Visit Provider Obstetrics & Gynecology
DX: Z34.81 Encounter for supervision of other normal pregnancy, first trimester (principal); Z3A.11 11 weeks gestation of pregnancy
CPT/HCPCS: 87491; 87591

== ENCOUNTER → 2021-08-14 12:00 | Outpatient (CLI) | payer OTHER, SELFPAY ==
[2021-08-16 19:07] LABS: Calc Gestational Age Ultrasound (.); Estriol, Free 1.36 ng/mL (.); Inhibin A, Dimeric 158.06 pg/mL (.); Inhibin A, MoM See interpretation. (.); Maternal Ethnicity Other (.); Maternal Weight 138 lbs (.); Number of Fetuses No (.); OSBR Risk 1 IN 10000 (.); Results Report (.); Test Results See interpretation. (.); hCG, MoM See interpretation. (.); hCG, Serum 71572 mIU/mL (.)
== END ==
PROVIDERS: PCP Nurse Practitioner; Referring Provider Obstetrics & Gynecology; Visit Provider Obstetrics & Gynecology
DX: Z34.82 Encounter for supervision of other normal pregnancy, second trimester (principal); Z3A.16 16 weeks gestation of pregnancy
CPT/HCPCS: 36415; 82105; 82677; 84702; 86336

== ENCOUNTER → 2021-08-25 10:55 | Outpatient (CLI) | payer OTHER, SELFPAY | PROVIDERS: PCP Nurse Practitioner; Referring Provider Obstetrics & Gynecology; Visit Provider Obstetrics & Gynecology | DX: O36.1190 Maternal care for Anti-A sensitization, unspecified trimester, not applicable or unspecified (principal) | CPT/HCPCS: 36415; 86850; 86870; 86900; 86901; 86905 ==

== ENCOUNTER → 2021-09-05 11:20 | Outpatient (CLI) | payer OTHER, SELFPAY | PROVIDERS: PCP Nurse Practitioner; Referring Provider Obstetrics & Gynecology; Visit Provider Obstetrics & Gynecology | DX: O36.1120 Maternal care for Anti-A sensitization, second trimester, not applicable or unspecified (principal) | CPT/HCPCS: 36415; 86850; 86870; 86886; 86900; 86901 ==

== ENCOUNTER → 2021-09-09 10:04 | Outpatient (CLI) | payer OTHER, SELFPAY ==
--- NOTE | 2021-09-09 10:08 | DI.US.S_ITS ---
PROCEDURE: US OB >= 14 WEEKS FETUS INDICATIONS: anatomy scan OUTSIDE/PRIOR DATING DATA: Last menstrual period (LMP): 04/12/2021. LMP-based estimated date of delivery (JESSICA): 01/17/2022. First dating scan (date and location): 06/13/2021. Estimated date of delivery (JESSICA) from first dating scan: 01/18/2022. TECHNIQUE: Real-time scanning was performed of the fetus, with image documentation and biometric measurements. COMPARISON: [facility], OB >= 14 WEEKS FETUS, 07/28/2021, 11:07. [facility], OB <= 14 WEEKS FETUS, 06/30/2021, 9:41. [facility] OB <= 14 WEEKS FETUS, 06/13/2021, 16:06. [facility], OB >= 14 WEEKS FETUS, 08/25/2021, 10:49. FINDINGS: General: A single living intrauterine gestation is present. Presentation: Breech. Placenta: Placental position is posterior , without previa. Amniotic fluid index: 16.7 cm, normal range is 5-24 cm. heart rate: 155 beats per minute. Maternal cervical canal: 3.1 cm long. Normal lower limit is 2.5 cm. biometrics: Biparietal diameter: 4.9 cm 20 weeks 6 days Head circumference: 18.6 cm 20 weeks 6 days Abdominal circumference: 15.9 cm 21 weeks 0 days Femur length: 3.1 cm 19 weeks 5 days Clinically estimated gestational age: 21 weeks 2 days Composite gestational age from present scan: 20 weeks 0 days Estimated weight and percentile: 353 g 10th percentile Anatomic survey: Neuro: Ventricles are non-dilated at less than 10 mm. Cisterna magna is normal at 3-11 mm. Cerebellum is normal in size and morphology. Nuchal skin fold: Normal at less than 6 mm between 14-21 weeks gestational age. Face: Nose and lips, facial profile are normal. Spine: No evidence for spina bifida. Heart: 4-chambered heart is present, with normal ventricular outflow tracts. Diaphragm: Diaphragm is intact. Stomach: Left-sided stomach is present. Kidneys: No hydronephrosis. Normal is less than 5 mm in 2nd trimester, less than 7 mm in 3rd trimester. Cord: 3-vessel cord has orthotopic insertion. Bladder: Normal in size. Extremities: All 4 extremities identified. IMPRESSION: 1. Single live intrauterine with ultrasound gestational age today of 20 weeks 4 days. 2. Anatomy is within normal limits. 3. weight is measured at the 10th percentile concerning for microsomia. Close interval imaging follow-up is recommended. We strive to produce accurate, complete, and clear reports of imaging services. To assist us in improving patient care, this report was composed using standard report templates and voice recognition software. Therefore, it may contain abnormal punctuation, insertions and/or omissions. Occasional wrong-word or sound-alike substitutions may occur. Though we review the report and make efforts to correct it, we do recommend that the report be read carefully in proper context to recognize any text inaccuracies. Dictated by: Ping Serna M.D. on 09/09/2021 at 14:27 Approved by: Ping Serna M.D. on 09/09/2021 at 14:29
== END ==
PROVIDERS: PCP Nurse Practitioner; Referring Provider Obstetrics & Gynecology; Visit Provider Obstetrics & Gynecology
DX: Z34.82 Encounter for supervision of other normal pregnancy, second trimester (principal); Z3A.20 20 weeks gestation of pregnancy
CPT/HCPCS: 76811

== ENCOUNTER → 2021-10-13 09:21 | Outpatient (CLI) | payer OTHER, SELFPAY ==
[2021-10-13 11:19] LABS: Hematocrit 29.4 % (36-46); Hemoglobin 9.9 g/dL (12.0-16.0)
[2021-10-13 12:06] LABS: GTT (PREG) 1 Hour PP 50gm Dose 124 mg/dL (76-139)
== END ==
PROVIDERS: PCP Family Medicine; Referring Provider Obstetrics & Gynecology; Visit Provider Obstetrics & Gynecology
DX: Z34.82 Encounter for supervision of other normal pregnancy, second trimester (principal)
CPT/HCPCS: 36415; 82950; 85014; 85018